=== PATIENT | female | born 1995 | race Caucasian/White ===

== ENCOUNTER 2016-11-07 04:19 | Emergency (ER) | payer SELFPAY ==
[~2016-11-07] VITALS: Ht 157.5 cm; Wt 95.3 kg
[~2016-11-07 04:19] MED LIST: ACET-704 PO; IBUP-1060 PO; PNV1TABL25 PO
[2016-11-07 04:35] VITALS: BP 143/72
[2016-11-07] MEDS ORDERED: LIDO:MAALOX:DONNATAL 1:1:1 15 ML SINGLE DOSE SWSW ONE (05:00)
[2016-11-07] MEDS ORDERED: ONDANSETRON ODT 4 MG TAB.RAPDIS. PO ONE (05:00)
[2016-11-07 05:20] LABS: BILIRUBIN,URINE NEGATIVE (NEG); GLUCOSE,URINE NEGATIVE (NEG); NITRITE,URINE NEGATIVE (NEG); PH,URINE 6.5; PROTEIN,URINE NEGATIVE (NEG-TRACE); UROBILINOGEN,URINE 0.2 mg/dL (0.2 mg/dL)
[2016-11-07 05:27] LABS: BACTERIA,URINE FEW /HPF (0-FEW); RBC,URINE OCC /HPF (0-2); SQUAMOUS EPITHELIAL CELL,UR MOD /LPF; WBC,URINE 20-40 /HPF (0-4)
--- NOTE | 2016-11-07 05:33 | PHYS DOC ---
Past Medical History Past Medical History: No Pertinent History Past Surgical History: No Surgical History Alcohol Use: None Drug Use: None Adult General Chief Complaint Chief Complaint: ABDOMINAL PAIN HPI HPI Patient is a 21 year old female who presents with abdominal pain. She reports symptoms x 4 days with diffuse abdominal pain & loose stools. Denies fevers/ chills, nausea, vomiting, hematochezia/melena, dysuria/hematuria, vaginal bleeding/discharge. No medical history & no abdominal surgeries. Review of Systems Review of Systems Constitutional: Denies fever or chills HENT: Denies nasal congestion or sore throat Respiratory: Denies cough or shortness of breath Cardiovascular: Denies chest pain GI: Reports abdominal pain & diarrhea, denies nausea, vomiting, bloody stools : Denies dysuria or hematuria Musculoskeletal: Denies back pain or joint pain Integument: Denies rash Neurologic: Denies headache Current Medications Current Medications Current Medications Medications (Trade) Dose Ordered Sig/Jeferson Start Time Stop Time Status Last Admin Dose Admin Multi-Ingredient Mouthwash/Gargle (Gi Cocktail Single Dose) 15 ml 1X ONCE 11/07/16 05:00 11/07/16 05:01 DC 11/07/16 04:45 15 ML Ondansetron HCl (Zofran Odt) 4 mg 1X ONCE 11/07/16 05:00 11/07/16 05:01 DC 11/07/16 04:45 4 MG Allergies Allergies Allergies Coded Allergies Type Severity Reaction Last Updated Verified No Known Drug Allergies 12/22/15 No Physical Exam Physical Exam Constitutional: obese, no acute distress, non-toxic appearance. HENT: Normocephalic, atraumatic, bilateral external ears normal, oropharynx moist, nose normal. Eyes: conjunctiva normal, no discharge. Neck: supple, no stridor. Cardiovascular: RRR, no murmurs, no edema. Lungs & Thorax: LCTAB, no wheezing, no respiratory distress. Abdomen: soft, nontender with palpation in all 4 quadrants, nondistended. no rebound/guarding, no masses or pulsatile masses. Skin: Warm, dry, no erythema, no rash. Back: No CVA tenderness. Extremities: No tenderness, no edema. Neurologic: Alert and oriented X 3, no focal deficits noted. Psychologic: Affect normal, judgement normal, mood normal. Current Patient Data Vital Signs Vital Signs Date Time Temp Pulse Resp B/P (MAP) Pulse Ox O2 Delivery O2 Flow Rate FiO2 11/07/16 04:35 98.2 96 18 143/72 (95) 97 Room Air 98.2 Lab Values Laboratory Tests Test 11/07/16 04:00 11/07/16 05:10 POC Urine HCG, Qualitative Hcg negative (Negative) Urine Collection Type Unknown Urine Color Yellow Urine Clarity Clear Urine pH 6.5 Urine Specific [place] 1.015 Urine Protein Negative mg/dL (NEG-TRACE) Urine Glucose (UA) Negative mg/dL (NEG) Urine Ketones (Stick) Negative mg/dL (NEG) Urine Blood Negative (NEG) Urine Nitrite Negative (NEG) Urine Bilirubin Negative (NEG) Urine Urobilinogen Dipstick 0.2 mg/dL (0.2 mg/dL) Urine Leukocyte Esterase Moderate (NEG) Urine RBC Occ /HPF (0-2) Urine WBC 20-40 /HPF (0-4) Urine Squamous Epithelial Cells Mod /LPF Urine Bacteria Few /HPF (0-FEW) Urine Mucus Mod /LPF EKG EKG [] Radiology/Procedures Radiology/Procedures [] Course & Med Decision Making Course & Med Decision Making Pertinent Labs and Imaging studies reviewed. (See chart for details) The patient presents with abdominal pain. She is afebrile, well appearing, no abdominal tenderness on exam. Found to have UTI, will give prescription for cipro & also give pepcid for possible GERD. Recommend rest, PO hydration with clear liquids, follow up as needed with primary care if not improving in 2-3 days. Come back for high fever, severe abdominal pain or flank pain, uncontrolled vomiting, any otherwise worsening condition. Discharged home in stable condition. [] Dragon Disclaimer Dragon Disclaimer This electronic medical record was generated, in whole or in part, using a voice recognition dictation system. Departure Departure Impression: Primary Impression: Urinary tract infection Disposition: 01 HOME, SELF-CARE Condition: STABLE Referrals: NO PCP (PCP) DIPTI FLOWERS MD Patient Instructions: Gastroesophageal Reflux Disease, Adult, [id number], Urinary Tract Infection, [id number] Additional Instructions: You were seen in the emergency department today for abdominal pain. Please take the prescribed antibiotic for urinary tract infection. Try Pepcid for stomach pain. Drink fluids to stay hydrated. Follow up with primary care in 2-3 days if not improving. Come back for high fever, severe pain, uncontrolled vomiting , any otherwise worsening condition. Scripts Famotidine (PEPCID) 20 Mg Tablet 20 MG PO HS, #15 TAB Prov: PACO OLSON MD 11/07/16 Ciprofloxacin Hcl (CIPRO) 250 Mg Tablet 1 TAB PO BID, #6 TAB Prov: PACO OLSON MD 11/07/16 PACO OLSON MD Nov 07, 2016 05:33
[2016-11-07] MEDS ORDERED: CIPR250T30 PO (05:59)
[2016-11-07] MEDS ORDERED: FAMO-63 PO (05:59)
[2016-11-08] MEDS ORDERED: ONDA4TAB10 PO (07:35)
[2016-11-08] MEDS ORDERED: OMEP20TA63 PO (07:35)
== END 2016-11-07 06:00 | disposition home or self-care (01) ==
LOC: ER 04:19
DX: N39.0 Urinary tract infection, site not specified (principal); R19.7 Diarrhea, unspecified
CPT/HCPCS: 81001; 81025; 87086; 99284; Q0162

== ENCOUNTER 2016-11-08 05:16 | Emergency (ER) | payer SELFPAY ==
[~2016-11-08] VITALS: Ht 157.5 cm; Wt 95.3 kg
[~2016-11-08 05:16] MED LIST changes: +CIPR250T30 PO; +FAMO-63 PO
[2016-11-08] MEDS ORDERED: ONDANSETRON ODT 4 MG TAB.RAPDIS. ONE (05:28)
[2016-11-08] MEDS ORDERED: ONDANSETRON ODT 4 MG TAB.RAPDIS. PO ONE (06:00)
[2016-11-08] MEDS ORDERED: fentaNYL PF VIAL 100 MCG/2 ML VIAL IV ONE (06:30)
[2016-11-08] MEDS ORDERED: IV NORMAL SALINE 1000ML BAG 1,000 ML IV ONE (06:30)
[2016-11-08] MEDS ORDERED: FAMOTIDINE 20 MG TABLET. PO ONE (06:30)
[2016-11-08] MEDS ORDERED: LIDO:MAALOX:DONNATAL 1:1:1 15 ML SINGLE DOSE SWSW ONE (06:30)
[2016-11-08] MEDS ORDERED: ONDANSETRON PF 4 MG/2 ML VIAL. IV ONE (06:30)
--- NOTE | 2016-11-08 06:36 | PHYS DOC ---
Past Medical History Past Medical History: No Pertinent History Past Surgical History: No Surgical History Alcohol Use: None Drug Use: None Adult General Chief Complaint Chief Complaint: ABDOMINAL PAIN HPI HPI Patient is a 21 year old female presenting to the emergency department for evaluation of abdominal pain nausea and vomiting. Patient says this started Friday after a hangover and she has not been able to hold anything down all week long. Patient says that she has epigastric burning that goes up into her chest and she has had nonbloody nonbilious emesis. Patient denies any fevers chills dysuria vaginal bleeding vaginal discharge. She is quite anxious but she is in no obvious distress with normal vital signs. Review of Systems Review of Systems Constitutional: Denies fever or chills [] Eyes: Denies change in visual acuity, redness, or eye pain [] HENT: Denies nasal congestion or sore throat [] Respiratory: Denies cough or shortness of breath [] Cardiovascular: No additional information not addressed in HPI [] GI: + abdominal pain, nausea, vomiting. No bloody stools or diarrhea [] : Denies dysuria or hematuria [] Musculoskeletal: Denies back pain or joint pain [] Integument: Denies rash or skin lesions [] Neurologic: Denies headache, focal weakness or sensory changes [] Current Medications Current Medications Current Medications Medications (Trade) Dose Ordered Sig/Jeferson Start Time Stop Time Status Last Admin Dose Admin Famotidine (Pepcid) 20 mg 1X ONCE 11/08/16 06:30 11/08/16 06:31 DC 11/08/16 07:11 20 MG Fentanyl Citrate (Fentanyl 2ml Vial) 75 mcg 1X ONCE 11/08/16 06:30 11/08/16 06:31 DC 11/08/16 07:12 75 MCG Multi-Ingredient Mouthwash/Gargle (Gi Cocktail Single Dose) 15 ml 1X ONCE 11/08/16 06:30 11/08/16 06:31 DC 11/08/16 07:11 15 ML Ondansetron HCl (Zofran Odt) 4 mg 1X ONCE 11/08/16 06:00 11/08/16 06:01 DC 11/08/16 05:42 4 MG Ondansetron HCl (Zofran) 4 mg 1X ONCE 11/08/16 06:30 11/08/16 06:31 DC 11/08/16 07:12 4 MG Sodium Chloride 1,000 ml @ 1,000 mls/hr 1X ONCE 11/08/16 06:30 11/08/16 07:29 DC 11/08/16 07:11 1,000 MLS/HR Allergies Allergies Allergies Coded Allergies Type Severity Reaction Last Updated Verified No Known Drug Allergies 12/22/15 No Physical Exam Physical Exam Constitutional: Well developed, well nourished, no acute distress, non-toxic appearance. [] HENT: Normocephalic, atraumatic, bilateral external ears normal, oropharynx moist, no oral exudates, nose normal. [] Eyes: PERRLA, EOMI, conjunctiva normal, no discharge. [] Neck: Normal range of motion, no tenderness, supple, no stridor. [] Cardiovascular:Heart rate regular rhythm, no murmur [] Lungs & Thorax: Bilateral breath sounds clear to auscultation [] Abdomen: Bowel sounds normal, soft, + epigastric tenderness, no masses, no pulsatile masses. [] Skin: Warm, dry, no erythema, no rash. [] Back: No tenderness, no CVA tenderness. [] Extremities: No tenderness, no cyanosis, no clubbing, ROM intact, no edema. [] Neurologic: Alert and oriented X 3, normal motor function, normal sensory function, no focal deficits noted. [] Current Patient Data Vital Signs Vital Signs Date Time Temp Pulse Resp B/P (MAP) Pulse Ox O2 Delivery O2 Flow Rate FiO2 11/08/16 07:12 18 98 11/08/16 05:21 98.4 79 117/56 (76) Room Air 98.4 Lab Values Laboratory Tests Test 11/08/16 06:09 11/08/16 06:35 11/08/16 07:00 POC Urine HCG, Qualitative Hcg negative (Negative) White Blood Count 9.3 x10^3/uL (4.0-11.0) Red Blood Count 4.50 x10^6/uL (3.50-5.40) Hemoglobin 13.5 g/dL (12.0-15.5) Hematocrit 40.2 % (36.0-47.0) Mean Corpuscular Volume 89 fL (79-100) Mean Corpuscular Hemoglobin 30 pg (25-35) Mean Corpuscular Hemoglobin Concent 34 g/dL (31-37) Red Cell Distribution Width 13.2 % (11.5-14.5) Platelet Count 210 x10^3/uL (140-400) Neutrophils (%) (Auto) 70 % (31-73) Lymphocytes (%) (Auto) 23 % (24-48) L Monocytes (%) (Auto) 6 % (0-9) Eosinophils (%) (Auto) 0 % (0-3) Basophils (%) (Auto) 1 % (0-3) Neutrophils # (Auto) 6.5 x10^3uL (1.8-7.7) Lymphocytes # (Auto) 2.2 x10^3/uL (1.0-4.8) Monocytes # (Auto) 0.6 x10^3/uL (0.0-1.1) Eosinophils # (Auto) 0.0 x10^3/uL (0.0-0.7) Basophils # (Auto) 0.1 x10^3/uL (0.0-0.2) Sodium Level 141 mmol/L (136-145) Potassium Level 3.6 mmol/L (3.5-5.1) Chloride Level 105 mmol/L (98-107) Carbon Dioxide Level 26 mmol/L (21-32) Anion Gap 10 (6-14) Blood Urea Nitrogen 4 mg/dL (7-20) L Creatinine 0.7 mg/dL (0.6-1.0) Estimated GFR (Cockcroft-Gault) 105.6 BUN/Creatinine Ratio 6 (6-20) Glucose Level 117 mg/dL (70-99) H Calcium Level 8.4 mg/dL (8.5-10.1) L Magnesium Level 1.9 mg/dL (1.8-2.4) Total Bilirubin 0.4 mg/dL (0.2-1.0) Aspartate Amino Transferase (AST) 16 U/L (15-37) Alanine Aminotransferase (ALT) 24 U/L (14-59) Alkaline Phosphatase 79 U/L (46-116) Creatine Kinase 144 U/L (26-192) Total Protein 6.8 g/dL (6.4-8.2) Albumin 3.5 g/dL (3.4-5.0) Albumin/Globulin Ratio 1.1 (1.0-1.7) Lipase 118 U/L (73-393) Urine Collection Type Unknown Urine Color Yellow Urine Clarity Clear Urine pH 6.5 Urine Specific [place] 1.025 Urine Protein Negative mg/dL (NEG-TRACE) Urine Glucose (UA) Negative mg/dL (NEG) Urine Ketones (Stick) 40 mg/dL (NEG) Urine Blood Negative (NEG) Urine Nitrite Negative (NEG) Urine Bilirubin Negative (NEG) Urine Urobilinogen Dipstick 0.2 mg/dL (0.2 mg/dL) Urine Leukocyte Esterase Negative (NEG) Urine RBC 0 /HPF (0-2) Urine WBC 0 /HPF (0-4) Urine Squamous Epithelial Cells Few /LPF Urine Bacteria 0 /HPF (0-FEW) Urine Opiates Screen Neg (NEG) Urine Methadone Screen Neg (NEG) Urine Barbiturates Pos (NEG) Urine Phencyclidine Screen Neg (NEG) Urine Amphetamine/Methamphetamine Neg (NEG) Urine Benzodiazepines Screen Neg (NEG) Urine Cocaine Screen Neg (NEG) Urine Cannabinoids Screen Pos (NEG) Urine Ethyl Alcohol Neg (NEG) Laboratory Tests 11/08/16 06:35 Laboratory Tests 11/08/16 06:35 EKG EKG [] Radiology/Procedures Radiology/Procedures [] Course & Med Decision Making Course & Med Decision Making Patient with gastritis-type symptoms we'll treat symptoms check labs and reassess. Patient with non-specific epigastric pain, likely related to gastritis. Patient given GI cocktail, zofran, fentanyl. Now she is feeling much better and can tolerate fluids by mouth with no difficulty. Her repeat abdominal exam is benign and she is feeling better and asking to go home. Given she appears well with normal vital signs benign physical exam and workup she'll be sent home with supportive treatment including Zofran and Prilosec and told to take it easy on her GI tract and follow with the primary care provider and/or PCP next week to ensure improvement come back to the ER sooner with any worsening pain fevers vomiting or other general concerns. Patient verbalized understanding of the above instructions. Dragon Disclaimer Dragon Disclaimer This electronic medical record was generated, in whole or in part, using a voice recognition dictation system. Departure Departure Impression: Primary Impression: Abdominal pain Additional Impression: Nausea & vomiting Disposition: 01 HOME, SELF-CARE Condition: GOOD Referrals: NO PCP (PCP) TRUDI RINCON MD Patient Instructions: Gastritis, Adult Additional Instructions: DRINK PLENTY OF WATER AND GATORADE. ONCE YOU START FEELING BETTER YOU CAN EAT SOFT NON-IRRITATING FOODS SUCH SOUPS, JELLOS, MASHED POTATOES. USE OTC TUMS AND MAALOX FOR YOUR SYMPTOMS. FOLLOW WITH A PCP AND/OR GI DOC IF NOT FEELING BETTER BY NEXT WEEK. THANK YOU! Scripts Omeprazole Magnesium (PRILOSEC OTC) 20 Mg Tablet. 20 MG PO DAILY, #30 TAB Prov: DIPTI CEDENO DO 11/08/16 Ondansetron (ZOFRAN ODT) 4 Mg Tab.rapdis 4 MG PO BID Y for NAUSEA/VOMITING, #14 TAB Prov: DIPTI CEDENO DO 11/08/16 Problem Qualifiers Primary Impression: Abdominal pain Abdominal location: epigastric Qualified Codes: R10.13 - Epigastric pain DIPTI CEDENO DO Nov 08, 2016 06:36
[2016-11-08 07:03] LABS: BASO # 0.1 x10^3/uL (0.0-0.2); BASO % 1 % (0-3); EOS % 0 % (0-3); HEMATOCRIT 40.2 % (36.0-47.0); HEMOGLOBIN 13.5 g/dL (12.0-15.5); LYMPH # 2.2 x10^3/uL (1.0-4.8); LYMPH % 23 % (24-48); MEAN CORPUSCULAR HEMOGLOBIN 30 pg (25-35); MEAN CORPUSCULAR HGB CONC 34 g/dL (31-37); MEAN CORPUSCULAR VOLUME 89 fL (79-100); MONO % 6 % (0-9); NEUT % 70 % (31-73); PLATELET COUNT 210 x10^3/uL (140-400); RED CELL DISTRIBUTION WIDTH 13.2 % (11.5-14.5); WHITE BLOOD COUNT 9.3 x10^3/uL (4.0-11.0)
[2016-11-08 07:13] LABS: BILIRUBIN,URINE NEGATIVE (NEG); GLUCOSE,URINE NEGATIVE (NEG); NITRITE,URINE NEGATIVE (NEG); PH,URINE 6.5; PROTEIN,URINE NEGATIVE (NEG-TRACE); UROBILINOGEN,URINE 0.2 mg/dL (0.2 mg/dL)
[2016-11-08 07:15] LABS: CALCIUM 8.4 mg/dL (8.5-10.1); CREATININE 0.7 mg/dL (0.6-1.0); GFR 105.6; POTASSIUM 3.6 mmol/L (3.5-5.1)
[2016-11-08 07:20] LABS: ALBUMIN 3.5 g/dL (3.4-5.0); ALBUMIN/GLOBULIN RATIO 1.1 (1.0-1.7); MAGNESIUM 1.9 mg/dL (1.8-2.4); TOTAL BILIRUBIN 0.4 mg/dL (0.2-1.0); TOTAL PROTEIN 6.8 g/dL (6.4-8.2)
[2016-11-08 07:24] LABS: BARBITURATES POS (NEG); BENZODIAZEPINES NEG (NEG); CANNABINOIDS POS (NEG); COCAINE NEG (NEG); METHADONE NEG (NEG); OPIATES NEG (NEG); PHENCYCLIDINE NEG (NEG)
[2016-11-08 07:25] LABS: BACTERIA,URINE 0 /HPF (0-FEW); RBC,URINE 0 /HPF (0-2); SQUAMOUS EPITHELIAL CELL,UR FEW /LPF; WBC,URINE 0 /HPF (0-4)
[2016-11-08 07:31] VITALS: BP 120/72
[2016-11-08] MEDS ORDERED: OMEP20TA63 PO (07:35)
[2016-11-08] MEDS ORDERED: ONDA4TAB10 PO (07:35)
== END 2016-11-08 07:57 | disposition home or self-care (01) ==
LOC: ER 05:16
DX: R10.13 Epigastric pain (principal); R11.2 Nausea with vomiting, unspecified
CPT/HCPCS: 36415; 80053; 80305; 80320; 81001; 81025; 82550; 83690; 83735; 85027; 96361; 96374; 96375; 99284; G0481; J2405; J3010; J7030; Q0162

== ENCOUNTER 2016-11-26 19:30 | Emergency (ER) | payer SELFPAY ==
[~2016-11-26] VITALS: Ht 157.5 cm; Wt 95.3 kg
[~2016-11-26 19:30] MED LIST changes: +OMEP20TA63 PO; +ONDA4TAB10 PO
[2016-11-26 20:04] LABS: BILIRUBIN,URINE NEGATIVE (NEG); GLUCOSE,URINE NEGATIVE (NEG); NITRITE,URINE NEGATIVE (NEG); PROTEIN,URINE NEGATIVE (NEG-TRACE); UROBILINOGEN,URINE 0.2 mg/dL (0.2 mg/dL)
[2016-11-26 20:15] LABS: BASO # 0.1 x10^3/uL (0.0-0.2); BASO % 1 % (0-3); EOS % 1 % (0-3); HEMATOCRIT 43.3 % (36.0-47.0); HEMOGLOBIN 14.3 g/dL (12.0-15.5); LYMPH # 4.1 x10^3/uL (1.0-4.8); LYMPH % 30 % (24-48); MEAN CORPUSCULAR HEMOGLOBIN 30 pg (25-35); MEAN CORPUSCULAR HGB CONC 33 g/dL (31-37); MEAN CORPUSCULAR VOLUME 90 fL (79-100); MONO % 6 % (0-9); NEUT % 62 % (31-73); PLATELET COUNT 236 x10^3/uL (140-400); RED BLOOD COUNT 4.79 x10^6/uL (3.50-5.40); RED CELL DISTRIBUTION WIDTH 13.6 % (11.5-14.5); WHITE BLOOD COUNT 13.8 x10^3/uL (4.0-11.0)
[2016-11-26] MEDS ORDERED: IV NORMAL SALINE 1000ML BAG 1,000 ML IV SCH (20:15)
[2016-11-26] MEDS ORDERED: ONDANSETRON PF 4 MG/2 ML VIAL. IV ONE (20:15)
[2016-11-26 20:16] LABS: BACTERIA,URINE FEW /HPF (0-FEW); RBC,URINE 0 /HPF (0-2); SQUAMOUS EPITHELIAL CELL,UR OCC /LPF; WBC,URINE OCC /HPF (0-4)
[2016-11-26 20:24] LABS: BARBITURATES NEG (NEG); BENZODIAZEPINES NEG (NEG); CANNABINOIDS POS (NEG); COCAINE NEG (NEG); METHADONE NEG (NEG); OPIATES NEG (NEG); PHENCYCLIDINE NEG (NEG)
[2016-11-26 20:31] LABS: CALCIUM 8.2 mg/dL (8.5-10.1); CREATININE 0.9 mg/dL (0.6-1.0); POTASSIUM 3.6 mmol/L (3.5-5.1)
[2016-11-26 20:37] LABS: ALBUMIN 3.8 g/dL (3.4-5.0); TOTAL BILIRUBIN 0.2 mg/dL (0.2-1.0); TOTAL PROTEIN 7.5 g/dL (6.4-8.2)
[2016-11-26] MEDS ORDERED: ONDA4TAB7 PO (21:27)
[2016-11-26 21:37] VITALS: BP 107/54
--- NOTE | 2016-11-27 01:42 | ED.ADGEN ---
Past Medical History Past Medical History: No Pertinent History Past Surgical History: No Surgical History Alcohol Use: None Drug Use: None Adult General Chief Complaint Chief Complaint: ABDOMINAL PAIN HPI HPI Patient is a 21 year old woman, with no significant past medical history, who presents to the emergency department with a complaint of "numbness", throughout her abdomen "and sometimes the rest of my body". Patient states that she is concerned that she may have something seriously wrong with her abdomen. She denies any pain, complains of strange sensation in the stomach, no diarrhea, no bloating, no weight changes, is eating and drinking without issue. She states that symptoms first began after she drank alcohol for her 21st birthday, and experienced nausea and vomiting the next day. This was several months ago. Patient states that she is not been drinking any alcohol since that time. Patient states that she has been seen in the ED and diagnosed with a urinary tract infection, and with gastritis since that time. She states that she has been having about one episode of vomiting daily over the past several days, only in the morning. She has been using Zofran without effect. She states she's been having regular bowel illness, last was yesterday. No emesis containing blood or bile, no blood in stool. She denies any possibility of , any discharge or drainage from the vagina, any concerns for STI exposures, any urinary complaints currently, any abdominal pain, any weakness, numbness, tingling, sick contacts or exposures. Patient has family at bedside. She describes the numbness as a paresthesia-like feeling throughout her abdomen occasionally in her extremities, states she is anxious, denies any depression, any suicidal or homicidal ideation, any ingestions or complaints. Review of Systems Review of Systems Constitutional: Denies fever or chills. [] Eyes: Denies change in visual acuity. [] HENT: Denies nasal congestion or sore throat. [] Respiratory: Denies cough or shortness of breath. [] Cardiovascular: Denies chest pain or edema. [] GI: Denies abdominal pain, "abdominal numbness", occasional nausea, one episode of vomiting daily in the morning, over the past several days, no diarrhea. : Denies dysuria. [] Musculoskeletal: Denies back pain or joint pain. [] Integument: Denies rash. [] Neurologic: Denies headache, focal weakness or sensory changes. [] Endocrine: Denies polyuria or polydipsia. [] Lymphatic: Denies swollen glands. [] Psychiatric: Denies depression or anxiety. [] Current Medications Current Medications Current Medications Medications (Trade) Dose Ordered Sig/Jeferson Start Time Stop Time Status Last Admin Dose Admin Ondansetron HCl (Zofran) 4 mg 1X ONCE 11/26/16 20:15 11/26/16 20:16 DC Sodium Chloride 1,000 ml @ 1,000 mls/hr Q1H 11/26/16 20:15 11/26/16 21:14 DC 11/26/16 20:09 1,000 MLS/HR Allergies Allergies Allergies Coded Allergies Type Severity Reaction Last Updated Verified No Known Drug Allergies 12/22/15 No Physical Exam Physical Exam Constitutional: Well developed, well nourished, no acute distress, non-toxic appearance. [] HENT: Normocephalic, atraumatic, bilateral external ears normal, oropharynx moist, no oral exudates, nose normal. [] Eyes: PERRLA, EOMI, conjunctiva normal, no discharge. [] Neck: Normal range of motion, no tenderness, supple, no stridor. [] Cardiovascular:Heart rate regular rhythm, no murmur, S1, S2, rubs or gallops. [] Lungs & Thorax: Bilateral breath sounds clear to auscultation, no wheezing, rhonchi, rales. No chest wall crepitus or tenderness. [] Abdomen: Bowel sounds normal, soft, no tenderness, no rebound, rigidity, no guarding, no masses, no pulsatile masses. [] Skin: Warm, dry, no erythema, no rash. [] Back: No tenderness, no CVA tenderness. [] Extremities: No tenderness, no cyanosis, no clubbing, ROM intact, no edema. Negative Homans sign. [] Neurologic: Alert and oriented X 3, normal motor function, normal sensory function, no focal deficits noted. [] Psychologic: Affect normal, judgement normal, mood normal. [] Current Patient Data Vital Signs Vital Signs Date Time Temp Pulse Resp B/P (MAP) Pulse Ox O2 Delivery O2 Flow Rate FiO2 11/26/16 21:37 75 18 107/54 (71) 97 Room Air 11/26/16 19:37 98.7 98.7 Lab Values Laboratory Tests Test 11/26/16 18:50 11/26/16 19:35 11/26/16 19:40 POC Urine HCG, Qualitative Hcg negative (Negative) Urine Color Yellow Urine Clarity Clear Urine pH 7.0 Urine Specific [place] 1.020 Urine Protein Negative mg/dL (NEG-TRACE) Urine Glucose (UA) Negative mg/dL (NEG) Urine Ketones (Stick) Negative mg/dL (NEG) Urine Blood Negative (NEG) Urine Nitrite Negative (NEG) Urine Bilirubin Negative (NEG) Urine Urobilinogen Dipstick 0.2 mg/dL (0.2 mg/dL) Urine Leukocyte Esterase Negative (NEG) Urine RBC 0 /HPF (0-2) Urine WBC Occ /HPF (0-4) Urine Squamous Epithelial Cells Occ /LPF Urine Bacteria Few /HPF (0-FEW) Urine Mucus Slight /LPF Urine Opiates Screen Neg (NEG) Urine Methadone Screen Neg (NEG) Urine Barbiturates Neg (NEG) Urine Phencyclidine Screen Neg (NEG) Urine Amphetamine/Methamphetamine Neg (NEG) Urine Benzodiazepines Screen Neg (NEG) Urine Cocaine Screen Neg (NEG) Urine Cannabinoids Screen Pos (NEG) Urine Ethyl Alcohol Neg (NEG) White Blood Count 13.8 x10^3/uL (4.0-11.0) H Red Blood Count 4.79 x10^6/uL (3.50-5.40) Hemoglobin 14.3 g/dL (12.0-15.5) Hematocrit 43.3 % (36.0-47.0) Mean Corpuscular Volume 90 fL (79-100) Mean Corpuscular Hemoglobin 30 pg (25-35) Mean Corpuscular Hemoglobin Concent 33 g/dL (31-37) Red Cell Distribution Width 13.6 % (11.5-14.5) Platelet Count 236 x10^3/uL (140-400) Neutrophils (%) (Auto) 62 % (31-73) Lymphocytes (%) (Auto) 30 % (24-48) Monocytes (%) (Auto) 6 % (0-9) Eosinophils (%) (Auto) 1 % (0-3) Basophils (%) (Auto) 1 % (0-3) Neutrophils # (Auto) 8.5 x10^3uL (1.8-7.7) H Lymphocytes # (Auto) 4.1 x10^3/uL (1.0-4.8) Monocytes # (Auto) 0.9 x10^3/uL (0.0-1.1) Eosinophils # (Auto) 0.2 x10^3/uL (0.0-0.7) Basophils # (Auto) 0.1 x10^3/uL (0.0-0.2) Sodium Level 143 mmol/L (136-145) Potassium Level 3.6 mmol/L (3.5-5.1) Chloride Level 106 mmol/L (98-107) Carbon Dioxide Level 27 mmol/L (21-32) Anion Gap 10 (6-14) Blood Urea Nitrogen 7 mg/dL (7-20) Creatinine 0.9 mg/dL (0.6-1.0) Estimated GFR (Cockcroft-Gault) 79.0 BUN/Creatinine Ratio 8 (6-20) Glucose Level 101 mg/dL (70-99) H Calcium Level 8.2 mg/dL (8.5-10.1) L Total Bilirubin 0.2 mg/dL (0.2-1.0) Aspartate Amino Transferase (AST) 19 U/L (15-37) Alanine Aminotransferase (ALT) 29 U/L (14-59) Alkaline Phosphatase 90 U/L (46-116) Total Protein 7.5 g/dL (6.4-8.2) Albumin 3.8 g/dL (3.4-5.0) Albumin/Globulin Ratio 1.0 (1.0-1.7) Lipase 107 U/L (73-393) Laboratory Tests 11/26/16 19:40 Laboratory Tests 11/26/16 19:40 EKG EKG Not indicated. [] Radiology/Procedures Radiology/Procedures Acute abdominal series: 3 view: Normal cardiopulmonary silhouette, no infiltrates, no effusions, no pneumothorax, no soft tissue or bony abnormality is identified. As interpreted by me. [] Course & Med Decision Making Course & Med Decision Making Pertinent Labs and Imaging studies reviewed. (See chart for details) Patient well-appearing, complaining of strange sensations of numbness in her abdomen, asks me "Can you guaranteed me that I don't have cancer and I'm not going to ?" Patient's family at bedside stated the patient lost her grandmother to lung cancer, patient was also concerned she could possibly have cancer she did smoke for a brief period of time, but currently is not smoking cigarettes. Laboratory studies and obstruction series obtained after discussion at bedside, no evidence of concerning findings identified, patient's drug screen is positive for marijuana. Patient is calm and cooperative, with stable vital signs in the ED, she does seem to be very anxious about various health- related issues, which may be tied to recent loss of a family member as stated. Reassurance provided to patient, patient encouraged to continue use of Zofran, hydration, to establish a primary care provider, and follow-up with a GI physician if abdominal symptoms persist. Patient discharged home with family in stable condition with plan as above. Dragon Disclaimer Dragon Disclaimer This electronic medical record was generated, in whole or in part, using a voice recognition dictation system. Departure Impression: Primary Impression: Paresthesias Disposition: 01 HOME, SELF-CARE Condition: IMPROVED Scripts Ondansetron Hcl (ZOFRAN) 4 Mg Tablet 1 TAB PO Q8HRS Y for NAUSEA, #12 TAB Prov: ISAÍAS ZUNIGA DO 11/26/16 ISAÍAS ZUNIGA DO Nov 27, 2016 01:42
--- NOTE | 2016-11-27 08:09 | RAD ---
Acute abdomen series with chest, 11/26/2016: History: Abdominal pain, nausea and vomiting Gas is present in large and small bowel in a nonspecific pattern. No free air seen in the abdomen. There is no evidence of organomegaly. The heart size is normal. The lungs are clear. There is no evidence of pleural fluid. IMPRESSION: No acute abdominal abnormality is detected.
== END 2016-11-26 21:45 | disposition home or self-care (01) ==
LOC: ER 19:30
DX: R20.0 Anesthesia of skin (principal); R11.2 Nausea with vomiting, unspecified
CPT/HCPCS: 36415; 74022; 80053; 80307; 81001; 81025; 83690; 85027; 96360; 99285; J7030; G0479

== ENCOUNTER 2016-11-29 16:41 | Emergency (ER) | payer SELFPAY ==
[~2016-11-29] VITALS: Ht 157.5 cm; Wt 87.5 kg
[~2016-11-29 16:41] MED LIST changes: +ONDA4TAB7 PO
[2016-11-29 16:55] VITALS: BP 136/88
[2016-11-29] MEDS ORDERED: NYST100054 PO (17:23)
--- NOTE | 2016-11-29 17:23 | PHYS DOC ---
Past Medical History Past Medical History: No Pertinent History Past Surgical History: No Surgical History Alcohol Use: None Drug Use: None Adult General Chief Complaint Chief Complaint: OTHER COMPLAINTS [facility] Patient is a 21 year old female who presents complaining of white tongue since yesterday. Patient states she was on antibiotics a couple weeks ago. Patient denies any fever coughing or congestion. Review of Systems Review of Systems Constitutional: Denies fever or chills [] Eyes: Denies change in visual acuity, redness, or eye pain [] HENT: white tongue Respiratory: Denies cough or shortness of breath [] Cardiovascular: No additional information not addressed in HPI [] Musculoskeletal: Denies back pain or joint pain [] Integument: Denies rash or skin lesions [] Neurologic: Denies headache, focal weakness or sensory changes [] Endocrine: Denies polyuria or polydipsia [] Allergies Allergies Allergies Coded Allergies Type Severity Reaction Last Updated Verified No Known Drug Allergies 12/22/15 No Physical Exam Physical Exam Constitutional: Well developed, well nourished, no acute distress, non-toxic appearance. [] HENT: Normocephalic, atraumatic, bilateral external ears normal, oropharynx moist, no oral exudates, nose normal. [] tongue with small amount of whiteness suspicious of thrush. Eyes: PERRLA, EOMI, conjunctiva normal, no discharge. [] Neck: Normal range of motion, no tenderness, supple, no stridor. [] Cardiovascular:Heart rate regular rhythm, no murmur [] Lungs & Thorax: Bilateral breath sounds clear to auscultation [] Skin: Warm, dry, no erythema, no rash. [] Back: No tenderness, no CVA tenderness. [] Extremities: No tenderness, no cyanosis, no clubbing, ROM intact, no edema. [] Neurologic: Alert and oriented X 3, normal motor function, normal sensory function, no focal deficits noted. [] Psychologic: Affect normal, judgement normal, mood normal. [] Current Patient Data Vital Signs Vital Signs Date Time Temp Pulse Resp B/P (MAP) Pulse Ox O2 Delivery O2 Flow Rate FiO2 11/29/16 16:55 98.2 86 16 97 Room Air 98.2 EKG EKG [] Radiology/Procedures Radiology/Procedures [] Course & Med Decision Making Course & Med Decision Making Pertinent Labs and Imaging studies reviewed. (See chart for details) Patient is in the ED with rash, she was on antibiotics a couple weeks ago. Will be discharged with nystatin. Follow-up with PCP from the list provided in a week. Warren Disclaimer Dragon Disclaimer This electronic medical record was generated, in whole or in part, using a voice recognition dictation system. Departure Departure Impression: Primary Impression: Thrush, oral Disposition: HOME, SELF-CARE Condition: STABLE Referrals: NO PCP (PCP) follow up with a doctor from the list provided as soon as you can Patient Instructions: Thrush, Adult Additional Instructions: You were seen for oral thrush. Use the provided medicines as ordered. Please establish care with one of the doctors from the list with provided as soon as possible and follow-up. Scripts Nystatin (NYSTATIN) 100,000 Unit/1 Ml Oral.susp 5 ML PO QID, #200 ML Prov: EV DIANE APRN 11/29/16 EV DIANE APRN Nov 29, 2016 17:23
== END 2016-11-29 17:27 | disposition home or self-care (01) ==
LOC: ER 16:41
DX: B37.0 Candidal stomatitis (principal)
CPT/HCPCS: 99283

== ENCOUNTER 2016-12-29 16:39 | Emergency (ER) | payer SELFPAY ==
[~2016-12-29] VITALS: Ht 157.5 cm; Wt 86.6 kg
[~2016-12-29 16:39] MED LIST changes: +NYST100054 PO
--- NOTE | 2016-12-29 17:11 | PHYS DOC ---
Past Medical History Past Medical History: No Pertinent History Past Surgical History: No Surgical History Alcohol Use: None Drug Use: None Adult General Chief Complaint Chief Complaint: CHEST WALL PAIN HPI HPI Patient is a 21 year old female who presents with pain that radiates up into her esophagus with burning sensation. Been going on for approximately a month. She states she wakes up the middle night with it and she's been taking Tums and sometimes it helps sometimes it doesn't. She denies any nausea vomiting or shortness of breath associated with this. She states everything started happening medially after birthday when she got intoxicated and then got a urinary tract infection and then got thrush on her tongue. She was seen by [facility] and treated for this and then followed up with her primary care physician 2 weeks ago and states everything was completely normal with her blood cell counts. She states she is under a lot of stress and this all started after she had her birthday and got intoxicated. Currently she denies any fevers chills nausea vomiting chest discomfort other abnormalities. She presents with her mom who also confirms that she is under a lot of stress. Review of Systems Review of Systems Constitutional: Denies fever or chills [] Eyes: Denies change in visual acuity, redness, or eye pain [] HENT: Denies nasal congestion or sore throat [] Respiratory: Denies cough or shortness of breath [] Cardiovascular: No additional information not addressed in HPI [] GI: Denies abdominal pain, nausea, vomiting, bloody stools or diarrhea [] : Denies dysuria or hematuria [] Musculoskeletal: Denies back pain or joint pain [] Integument: Denies rash or skin lesions [] Neurologic: Denies headache, focal weakness or sensory changes [] Endocrine: Denies polyuria or polydipsia [] Current Medications Current Medications Current Medications Medications (Trade) Dose Ordered Sig/Jeferson Start Time Stop Time Status Last Admin Dose Admin Multi-Ingredient Mouthwash/Gargle (Gi Cocktail Single Dose) 15 ml 1X ONCE 12/29/16 17:30 12/29/16 17:31 DC 12/29/16 17:30 15 ML Allergies Allergies Allergies Coded Allergies Type Severity Reaction Last Updated Verified No Known Drug Allergies 12/22/15 No Physical Exam Physical Exam Constitutional: Well developed, well nourished, no acute distress, non-toxic appearance. [] HENT: Normocephalic, atraumatic, bilateral external ears normal, oropharynx moist, no oral exudates, nose normal. [] Eyes: PERRLA, EOMI, conjunctiva normal, no discharge. [] Neck: Normal range of motion, no tenderness, supple, no stridor. [] Cardiovascular:Heart rate regular rhythm, no murmur [] Lungs & Thorax: Bilateral breath sounds clear to auscultation [] Abdomen: Bowel sounds normal, soft, no tenderness, no masses, no pulsatile masses. [] Skin: Warm, dry, no erythema, no rash. [] Back: No tenderness, no CVA tenderness. [] Extremities: No tenderness, no cyanosis, no clubbing, ROM intact, no edema. [] Neurologic: Alert and oriented X 3, normal motor function, normal sensory function, no focal deficits noted. [] Psychologic: Affect normal, judgement normal, mood normal. [] Current Patient Data Vital Signs Vital Signs Date Time Temp Pulse Resp B/P (MAP) Pulse Ox O2 Delivery O2 Flow Rate FiO2 12/29/16 16:50 98.4 74 22 144/67 (92) 98 Room Air 98.4 Lab Values Laboratory Tests Test 12/29/16 16:09 POC Urine HCG, Qualitative Hcg negative (Negative) EKG EKG [] Radiology/Procedures Radiology/Procedures [] Impressions: Acid reflux Course & Med Decision Making Course & Med Decision Making Pertinent Labs and Imaging studies reviewed. (See chart for details) Physical exam is benign. Her vitals are all within normal limits. As I have any concerning symptoms such as shortness of breath, weight loss or other abnormalities associated with this. Certainly sounds like this could be acid reflux. We'll have her try Pepcid AC and follow-up with her primary care physician. Return precautions given she is agreeable Plan B discharged in stable condition this time. Dragon Disclaimer Dragon Disclaimer This electronic medical record was generated, in whole or in part, using a voice recognition dictation system. Departure Departure Impression: Primary Impression: Acid reflux Disposition: HOME, SELF-CARE Condition: STABLE Referrals: NO PCP (PCP) Patient Instructions: Gastroesophageal Reflux Disease, Adult Additional Instructions: Your symptoms sound like you have acid reflux and this could be causing your pain in your chest that goes up into her throat as your describing. You can try [id number] Pepcid AC. This can be purchased at your local pharmacy. Please follow instructions on the bottle. You will need to follow-up with her primary care physician's within the next week. He should follow up with [facility]. Return ER if your pain gets worse, you have troubles breathing swallowing, shortness of breath associated with these, weight loss or other concerns. Problem Qualifiers Primary Impression: Acid reflux Esophagitis presence: esophagitis presence not specified Qualified Codes: K21.9 - Gastro-esophageal reflux disease without esophagitis NAGA MARTINES MD Dec 29, 2016 17:11
[2016-12-29] MEDS ORDERED: LIDO:MAALOX:DONNATAL 1:1:1 15 ML SINGLE DOSE SWSW ONE (17:30)
[2016-12-29 18:00] VITALS: BP 132/64
--- NOTE | 2016-12-30 06:08 | EKG ---
[facility] [address] [place] [address] Test Date: 2016-12-29 Test Time: 16:56:40 Pat Name: MAURI STARKS Department: Room: Gender: F Sterilisation Technician: : 1995 Requested By: NAGA MARTINES Order Number: [id number] Reading MD: Johnathan Bakre Measurements Intervals [place] Rate: 74 P: 62 WA: 148 QRS: 65 QRSD: 80 T: 31 QT: 382 QTc: 424 Interpretive Statements SINUS RHYTHM Electronically Signed On 12-30-2016 12:04:20 CDT by Johnathan Baker
== END 2016-12-29 18:01 | disposition home or self-care (01) ==
LOC: ER 16:39
DX: K21.9 Gastro-esophageal reflux disease without esophagitis (principal); F43.9 Reaction to severe stress, unspecified
CPT/HCPCS: 81025; 93005; 99283-25

== ENCOUNTER 2018-04-16 13:59 | Emergency (ER) | payer MEDICAID, OTHER ==
[~2018-04-16] VITALS: Ht 162.6 cm; Wt 86.6 kg
[2018-04-16 15:19] LABS: BILIRUBIN,URINE NEGATIVE (NEG); CLARITY,URINE CLEAR; COLOR,URINE YELLOW; NITRITE,URINE NEGATIVE (NEG); PROTEIN,URINE NEGATIVE (NEG-TRACE); UROBILINOGEN,URINE 0.2 mg/dL (0.2 mg/dL)
[2018-04-16 15:25] LABS: SQUAMOUS EPITHELIAL CELL,UR MOD /LPF
[2018-04-16 15:26] LABS: BACTERIA,URINE 0 /HPF (0-FEW); RBC,URINE 0 /HPF (0-2)
--- NOTE | 2018-04-16 15:29 | PHYS DOC ---
Past Medical History Past Medical History: No Pertinent History Past Surgical History: No Surgical History Alcohol Use: None Drug Use: None Adult General Chief Complaint Chief Complaint: VAGINAL BLEEDING HPI HPI Patient is a 22 year old female who presents to the emergency room with complaints of vaginal itching, and blood on the tissue paper when she wipes the last 2 days. Patient denies any abdominal pain, pelvic pain, low back pain, or hematuria. She states that at times her labia trevizo when she urinates. She admits to scratching at the itching skin. She denies any irregular vaginal odor. She states she was seen at [facility] on April 09 and told that she was 7 weeks . She states at that time they prescribed her some Keflex and she has been taking that. Patient reports concerns of having a yeast infection. She states that [facility] there was no vaginal exam completed. Her last menstrual period was at the end of February she is 2 para 1. She denies any nausea, vomiting, diarrhea, or fever. She denies any increased urinary frequency or foul smell to her urine. Review of Systems Review of Systems Constitutional: Denies fever or chills [] Respiratory: Denies cough or shortness of breath [] Cardiovascular: No additional information not addressed in HPI [] GI: Denies abdominal pain, nausea, vomiting, or diarrhea [] : See history of present illness Musculoskeletal: Denies back pain or joint pain [] Integument: Denies rash or skin lesions [] Neurologic: Denies headache, focal weakness or sensory changes [] Complete systems were reviewed and found to be within normal limits, except as documented in this note. Allergies Allergies Allergies Coded Allergies Type Severity Reaction Last Updated Verified No Known Drug Allergies 12/22/15 No Physical Exam Physical Exam Constitutional: Well developed, well nourished, no acute distress, non-toxic appearance. [] HENT: Normocephalic, atraumatic, bilateral external ears normal, nose normal. [ ] Eyes: conjunctiva normal, no discharge. [] Neck: Normal range of motion Pelvic Exam: Vb Developer present Saba RN Abdomen: Nontender External Genitalia: erythremia of labial folds consistent with kasey Speculum: Normal vaginal mucosa, thick white vaginal discharge, normal cervical discharge Bimanual: No adnexal masses or tenderness, No CMT [] Skin: Warm, dry, no erythema, no rash. [] Extremities: No cyanosis,ROM intact, no edema. [] Neurologic: Alert and oriented X 3, normal motor function, normal sensory function, no focal deficits noted. [] Psychologic: Affect normal, judgement normal, mood normal. [] Current Patient Data Vital Signs Vital Signs Date Time Temp Pulse Resp B/P (MAP) Pulse Ox O2 Delivery O2 Flow Rate FiO2 04/16/18 17:01 79 20 138/80 (99) 98 04/16/18 14:21 97.3 Room Air 97.3 Lab Values Laboratory Tests Test 04/16/18 15:09 Urine Collection Type Unknown Urine Color Yellow Urine Clarity Clear Urine pH 6.0 Urine Specific [place] 1.010 Urine Protein Negative mg/dL (NEG-TRACE) Urine Glucose (UA) Negative mg/dL (NEG) Urine Ketones (Stick) Negative mg/dL (NEG) Urine Blood Negative (NEG) Urine Nitrite Negative (NEG) Urine Bilirubin Negative (NEG) Urine Urobilinogen Dipstick 0.2 mg/dL (0.2 mg/dL) Urine Leukocyte Esterase Small (NEG) Urine RBC 0 /HPF (0-2) Urine WBC 1-4 /HPF (0-4) Urine Squamous Epithelial Cells Mod /LPF Urine Bacteria 0 /HPF (0-FEW) POC Urine HCG, Qualitative Hcg positive (Negative) Microbiology 04/16/18 Wet Prep - Final, Complete EKG EKG [] Radiology/Procedures Radiology/Procedures [] Course & Med Decision Making Course & Med Decision Making Pertinent Labs and Imaging studies reviewed. (See chart for details) dx: Bacterial vaginosis Prescription was written for Flagyl. Urine was negative for signs of infection, but not suspicious for bacterial vaginosis. Patient was instructed to continue taking Keflex as previously prescribed by [facility]. She may use [id number] Monistat for relief of her external vaginal itching. Up with CONTINUOUS IMPROVEMENT DIRECTOR next week as planned. Return to the ER symptoms worsen. Patient verbalized an understanding of home care, medications, follow-up, and return to ED instructions and was in agreement with the plan of care. Dragon Disclaimer Dragon Disclaimer This electronic medical record was generated, in whole or in part, using a voice recognition dictation system. Departure Departure Impression: Primary Impression: Bacterial vaginosis Disposition: HOME, SELF-CARE Condition: STABLE Referrals: UNKNOWN PCP NAME (PCP) Patient Instructions: Bacterial Vaginosis, [id number] Additional Instructions: Fill the prescription and take as directed. Continue taking keflex as previously prescribed. Recommend Monistat over the counter for relief of vaginal itching. Follow up with your OBgyn next week as planned. Return to the ER if symptoms worsen. Scripts Metronidazole (FLAGYL) 500 Mg Tablet 1 TAB PO BID, #14 TAB Prov: MINAL MORRISON APRN 04/16/18 MINAL MORRISON LEGAL WRITING PROFESSOR Apr 16, 2018 15:29
[2018-04-16] MEDS ORDERED: METR500T PO (16:36)
[2018-04-16 17:01] VITALS: BP 138/80
[2018-04-17 13:22] LABS: GC PROBE Negative (Negative)
== END 2018-04-16 17:01 | disposition home or self-care (01) ==
LOC: ER 13:59
DX: O23.591 Infection of other part of genital tract in pregnancy, first trimester (principal); N76.0 Acute vaginitis; B96.89 Other specified bacterial agents as the cause of diseases classified elsewhere; Z3A.01 Less than 8 weeks gestation of pregnancy
CPT/HCPCS: 81001; 81025; 87086; 87491; 87591; 99283; Q0111

== ENCOUNTER → 2018-07-03 | Outpatient (CLI) | payer OTHER ==
[~2018-07-03] MED LIST changes: +METR500T PO
--- NOTE | 2018-07-03 22:23 | RAD ---
EXAM: Obstetrics sonogram. HISTORY: Size and dates discrepancy. TECHNIQUE: Sonographic imaging of a gravid uterus was performed. COMPARISON: None. FINDINGS: There is a single intrauterine foetus in variable presentation with a heart rate of 163 bpm. The fetus is in cephalic presentation at the beginning of the exam and breech presentation the end of the exam. The cervix is closed and measures 5.9 cm in thickness. There is suggestion of placenta previa on the submitted images. The amniotic fluid axes normal at 10.3 cm. There is a four-chamber heart. There is a three-vessel umbilical cord with normal insertion. The stomach, kidneys, bladder, spine, brain, facial profile and extremities are unremarkable. The biparietal diameter is 4.14 cm, corresponding with 18 weeks and 4 days. The head circumference is 15.43 cm, corresponding with 18 weeks and 3 days. The abdominal circumference is 12.99 cm, corresponding with 18 weeks and 4 days. The femoral length is 2.85 cm, corresponding with 18 weeks and 5 days. The estimated gestational age patient combined ultrasound measurements is 4 days and the estimated weight is 248 g. The estimated due date is 11/30/2018. IMPRESSION: 1. Single intrauterine fetus with an estimated gestational age based on ultrasound measurements of 18 weeks and 4 days and heart rate of 163 bpm. 2. Unremarkable anatomy. 3. Suspected placenta previa. Follow-up to assess for resolution. Electronically signed by: Alyssa Moser MD (07/03/2018 10:21 PM) [facility]
== END | disposition home or self-care (01) ==
LOC: US 14:32
PROVIDERS: ATTEND Obstetrics & Gynecology
DX: O09.92 Supervision of high risk pregnancy, unspecified, second trimester (principal); O26.842 Uterine size-date discrepancy, second trimester; Z3A.18 18 weeks gestation of pregnancy
CPT/HCPCS: 76805

== ENCOUNTER → 2018-09-08 | Outpatient (CLI) | payer OTHER ==
--- NOTE | 2018-09-08 13:17 | RAD ---
Obstetrical ultrasound-limited, 09/08/2018: HISTORY: Follow-up placenta previa There is a single intrauterine fetus in a cephalic orientation. The biparietal diameter measures 7.1 cm compatible with a gestational age of 28-29 weeks. This corresponds well with the other measurements and yields a sonographic EDC of 11/28/2018. This correlates well with the EDC of 11/30/2018 established on the previous ultrasound exam of 07/03/2018. Normal activity and heart motion were seen. The heart rate is 141 bpm. A full survey was not performed at this time. The placenta lies anteriorly with no evidence of placenta previa. The cervical length is 4.2 cm. The amniotic fluid index of 10.2 is within normal limits. IMPRESSION: 1. Single viable intrauterine fetus of 28-29 weeks gestational age demonstrating normal interval growth since 07/03/2018. 2. No evidence of placenta previa. Electronically signed by: Rito Sr MD (09/08/2018 1:14 PM) [facility]
== END | disposition home or self-care (01) ==
LOC: US 10:25
PROVIDERS: ATTEND Obstetrics & Gynecology
DX: O44.03 Complete placenta previa NOS or without hemorrhage, third trimester (principal); Z3A.28 28 weeks gestation of pregnancy
CPT/HCPCS: 76815

== ENCOUNTER 2018-10-26 21:47 | Observation (INO) | payer OTHER ==
[2018-10-26] MEDS ORDERED: IV RINGERS,LACTATED 1000ML 1,000 ML IV SCH (21:49)
[2018-10-26] MEDS ORDERED: ACETAMINOPHEN 500 MG TABLET PO PRN (22:00)
[2018-10-26 22:13] LABS: BILIRUBIN,URINE NEGATIVE (NEG); CLARITY,URINE CLEAR; NITRITE,URINE NEGATIVE (NEG); PH,URINE 7.5; PROTEIN,URINE NEGATIVE (NEG-TRACE); UROBILINOGEN,URINE 0.2 mg/dL (0.2 mg/dL)
[2018-10-26 22:18] LABS: COLOR,URINE STRAW
[2018-10-26 22:21] LABS: BACTERIA,URINE 0 /HPF (0-FEW); RBC,URINE 0 /HPF (0-2); SQUAMOUS EPITHELIAL CELL,UR FEW /LPF; WBC,URINE 0 /HPF (0-4)
== END 2018-10-26 22:58 | disposition home or self-care (01) ==
LOC: 3 SO LND 21:47
PROVIDERS: ADMIT Obstetrics & Gynecology; ATTEND Obstetrics & Gynecology
DX: Z34.93 Encounter for supervision of normal pregnancy, unspecified, third trimester (principal); Z3A.34 34 weeks gestation of pregnancy
CPT/HCPCS: 81001; G0379

== ENCOUNTER 2019-06-17 16:14 | Emergency (ER) | payer SELFPAY ==
[~2019-06-17] VITALS: Ht 157.5 cm; Wt 86.3 kg
[~2019-06-17 16:14] MED LIST changes: +HYDR-3164 PO; +NAPR-514 PO
[2019-06-17 16:56] VITALS: BP 151/70
--- NOTE | 2019-06-17 17:22 | PHYS DOC ---
Past Medical History Past Medical History: No Pertinent History Past Surgical History: No Surgical History Smoking Status: Never Smoker Alcohol Use: None Drug Use: None Adult General Chief Complaint Chief Complaint: COUGH HPI HPI Patient is a 23 year old female who presents to the ED today with multiple comp laints. Patient is complaining of a lump on the right armpit that she believes she has had for a long time. She believes she has cancer and would like this lump tested. She states she thinks she is going to right away from this lump. She appears tearful. She states she has history of anxiety and depression and is not on any treatment. Patient denies any family or personal history of cancer. She is also complaining of nausea and vomiting intermittently for 2 weeks. On questioning whether she is or not, she states her cycle is late but this is not unusual and states she does not want a test in the ED because of the cost. She states she wants to be checked for any type of cancer to make sure she doesn't . Denies any suicidal or homicidal ideations. Denies any vaginal bleeding. Review of Systems Review of Systems Constitutional: Denies fever or chills [] Eyes: Denies change in visual acuity, redness, or eye pain [] HENT: Denies nasal congestion or sore throat [] Respiratory: Denies cough or shortness of breath [] Cardiovascular: No additional information not addressed in HPI [] GI: Reports nausea and vomiting. Denies abdominal pain, bloody stools or diarrhea [] : Denies dysuria or hematuria [] Musculoskeletal: Denies back pain or joint pain [] Integument: Reports lump on the right complete Neurologic: Denies headache, focal weakness or sensory changes [] Psych: Reports anxiety and depression All other systems were reviewed and found to be within normal limits, except as documented in this note. Allergies Allergies Allergies Coded Allergies Type Severity Reaction Last Updated Verified No Known Drug Allergies 12/22/15 No Physical Exam Physical Exam Constitutional: Well developed, well nourished, no acute distress, non-toxic appearance. [] HENT: Normocephalic, atraumatic, bilateral external ears normal, oropharynx moist, no oral exudates, nose normal. [] Eyes: PERRLA, EOMI, conjunctiva normal, no discharge. [] Neck: Normal range of motion, no tenderness, supple, no stridor. [] Cardiovascular:Heart rate regular rhythm, no murmur [] Lungs & Thorax: Bilateral breath sounds clear to auscultation [] Abdomen: Bowel sounds normal, soft, no tenderness, no masses, no pulsatile masses. [] Skin: Warm, dry, no erythema, no rash. No palpable lumps noted on bilateral armpits Back: No tenderness, no CVA tenderness. [] Extremities: No tenderness, no cyanosis, no clubbing, ROM intact, no edema. [] Neurologic: Alert and oriented X 3, normal motor function, normal sensory function, no focal deficits noted. [] Psychologic: Flat affect, depressed mood, tearful. Current Patient Data Vital Signs Vital Signs Date Time Temp Pulse Resp B/P (MAP) Pulse Ox O2 Delivery O2 Flow Rate FiO2 06/17/19 16:56 98.9 98 16 151/70 (97) 98 Room Air 98.9 EKG EKG [] Radiology/Procedures Radiology/Procedures [] Course & Med Decision Making Course & Med Decision Making Pertinent Labs and Imaging studies reviewed. (See chart for details) This is a 23-year-old female patient with multiple including a lump on the right arm pit for unknown period of time, anxiety and depression, nausea and vomiting for 2 weeks and refusing a test. I spoke to patient and significant other for a long time. Provided her resources for follow-up including resources for home test, , [facility]. She met [facility] protocol. She left Dragon Disclaimer Dragon Disclaimer This electronic medical record was generated, in whole or in part, using a voice recognition dictation system. Departure Departure Impression: Primary Impression: Lump in armpit Additional Impressions: Nausea & vomiting Anxiety Depression Disposition: 07 AGAINST MEDICAL ADVICE Condition: STABLE Referrals: NO PCP (PCP) Problem Qualifiers Primary Impression: Lump in armpit Laterality: right Qualified Codes: R22.31 - Localized swelling, mass and lump, right upper limb Additional Impressions: Nausea & vomiting Vomiting type: unspecified Vomiting Intractability: non-intractable Qualified Codes: R11.2 - Nausea with vomiting, unspecified Depression Depression Type: unspecified Qualified Codes: F32.9 - Major depressive disorder, single episode, unspecified MUTUNGA,EV FLIGHT RADIO OPERATOR Jun 17, 2019 17:22
== END 2019-06-17 17:20 | disposition home or self-care (01) ==
LOC: ER 16:14
DX: R22.31 Localized swelling, mass and lump, right upper limb (principal); R11.2 Nausea with vomiting, unspecified; F41.9 Anxiety disorder, unspecified; F32.9 Major depressive disorder, single episode, unspecified
CPT/HCPCS: 99283

== ENCOUNTER 2020-02-03 12:34 | Emergency (ER) | payer SELFPAY ==
[~2020-02-03] VITALS: Ht 157.5 cm; Wt 91.8 kg
[2020-02-03 13:05] VITALS: BP 119/57
[2020-02-03] MEDS ORDERED: clonazePAM 0.5 MG TABLET PO STA (14:02)
[2020-02-03] MEDS ORDERED: CLON-77 PO (14:16)
--- NOTE | 2020-02-03 14:17 | PHYS DOC ---
Past Medical History Past Medical History: No Pertinent History Past Surgical History: No Surgical History Smoking Status: Never Smoker Alcohol Use: None Drug Use: None General Adult EDM: Chief Complaint: GENERALIZED BODY ACHES HPI: HPI: Patient is a 24 year old female with a history of anxiety who presents to the ED today complaining of generalized pain to the left entire side that is been going on for days. Patient denies any injury. Denies any chest pain, shortness of breath, denies any extraneous activity that could cause this pain including heavy lifting. 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 She states she is under overwhelming stress right now especially taking care of her kids and home schooling them. Denies any suicidal homicidal ideations. Requesting somebody to talk to. Review of Systems: Review of Systems: Constitutional: Denies fever or chills. [] Eyes: Denies change in visual acuity. [] HENT: Denies nasal congestion or sore throat. [] Respiratory: Denies cough or shortness of breath. [] Cardiovascular: Denies chest pain or edema. [] GI: Denies abdominal pain, nausea, vomiting, bloody stools or diarrhea. [] : Denies dysuria. [] Musculoskeletal: Reports pain to the entire left side Integument: Denies rash. [] Neurologic: Denies headache, focal weakness or sensory changes. [] Psychiatric: reports anxiety Heart Score: Risk Factors: Risk Factors: DM, Current or recent (<one month) smoker, HTN, HLP, family history of CAD, obesity. Risk Scores: Score 0 - 3: 2.5% MACE over next 6 weeks - Discharge Home Score 4 - 6: 20.3% MACE over next 6 weeks - Admit for Clinical Observation Score 7 - 10: 72.7% MACE over next 6 weeks - Early Invasive Strategies Current Medications: Current Medications Medications (Trade) Dose Ordered Sig/Jeferson Start Time Stop Time Status Last Admin Dose Admin Clonazepam (KlonoPIN) 0.5 mg 1X STAT 02/03/20 14:02 02/03/20 14:07 DC Allergies: Allergies: Allergies Coded Allergies Type Severity Reaction Last Updated Verified No Known Drug Allergies 12/22/15 No Physical Exam: PE: Constitutional: Well developed, well nourished, no acute distress, non-toxic appearance. [] HENT: Normocephalic, atraumatic, bilateral external ears normal, oropharynx moist, no oral exudates, nose normal. [] Eyes: PERRLA, EOMI, conjunctiva normal, no discharge. [] Neck: Normal range of motion, no tenderness, supple, no stridor. [] Cardiovascular:Heart rate regular rhythm, no murmur [] Lungs & Thorax: Bilateral breath sounds clear to auscultation [] Abdomen: Bowel sounds normal, soft, no tenderness, no masses, no pulsatile masses. [] Skin: Warm, dry, no erythema, no rash. [] Back: No tenderness, no CVA tenderness. [] Extremities: No tenderness, no cyanosis, no clubbing, ROM intact, no edema. [] Neurologic: Alert and oriented X 3, normal motor function, normal sensory function, no focal deficits noted. [] Psychologic: Flat affect Current Patient Data: Vital Signs: Vital Signs Date Time Temp Pulse Resp B/P (MAP) Pulse Ox O2 Delivery O2 Flow Rate FiO2 02/03/20 13:05 98.1 72 18 119/57 (77) 97 Room Air 98.1 EKG: EK interpreted by Dr. Chua sinus rhythm HR 58 no STEMI[] Radiology/Procedures: Radiology/Procedures: [] Course & Med Decision Making: Course & Med Decision Making Pertinent Labs and Imaging studies reviewed. (See chart for details) This is a 24-year-old female patient presenting to the ED today complaining of pain to her entire left side that is been going on for days. Patient appears overwhelmed and stressed out. Her stressors of family issues. EKG is negative, Jc from the PAT team was available who talked to patient. She was provided resources for follow-up. Warren Disclaimer: Warren Disclaimer: This electronic medical record was generated, in whole or in part, using a voice recognition dictation system. Departure Departure Impression: Primary Impression: Stress at home Additional Impression: Musculoskeletal pain Disposition: 01 HOME, SELF-CARE Condition: STABLE Referrals: NO PCP (PCP) follow up with resources provided by the PAT team Patient Instructions: Stress Additional Instructions: You were evaluated in the emergency room, please follow-up with the resources provided by Jc. Take the prescribed medications as ordered. Scripts Clonazepam (CLONAZEPAM ) 0.5 Mg Tablet 0.5 MG PO TID PRN for ANXIETY / AGITATION, #21 TAB Prov: EV DIANE APRN 02/03/20 EV DIANE APRN Feb 03, 2020 14:17
== END 2020-02-03 14:26 | disposition home or self-care (01) ==
LOC: ER 12:34
DX: F43.9 Reaction to severe stress, unspecified (principal); M79.18 Myalgia, other site; F41.9 Anxiety disorder, unspecified
CPT/HCPCS: 93005; 99283

== ENCOUNTER 2020-12-08 16:51 | Emergency (ER) | payer SELFPAY ==
[~2020-12-08] VITALS: Ht 160 cm; Wt 90.9 kg
[~2020-12-08 16:51] MED LIST changes: +CLON-77 PO
[2020-12-08] MEDS ORDERED: IV NORMAL SALINE 1000ML BAG 1,000 ML IV SCH (17:15)
--- NOTE | 2020-12-08 17:31 | EKG ---
[facility] [address] [place] [address] Test Date: 2020-12-08 Test Time: 17:02:26 Pat Name: MAURI STARKS Department: Room: Gender: F Therapeutic Case Manager: : 1995 Requested By: JU FERRARO Order Number: [id number] Reading MD: Measurements Intervals [place] Rate: 74 P: 56 NE: 144 QRS: 54 QRSD: 78 T: 33 QT: 370 QTc: 411 Interpretive Statements SINUS RHYTHM NORMAL ECG RI6.02 No previous ECG available for comparison
[2020-12-08 18:03] LABS: BASO # 0.1 x10^3/uL (0.0-0.2); BASO % 1 % (0-3); EOS % 0 % (0-3); HEMATOCRIT 41.6 % (36.0-47.0); HEMOGLOBIN 14.1 g/dL (12.0-15.5); LYMPH # 3.1 x10^3/uL (1.0-4.8); LYMPH % 29 % (24-48); MEAN CORPUSCULAR HEMOGLOBIN 30 pg (25-35); MEAN CORPUSCULAR HGB CONC 34 g/dL (31-37); MEAN CORPUSCULAR VOLUME 88 fL (79-100); MONO # 0.5 x10^3/uL (0.0-1.1); MONO % 5 % (0-9); NEUT # 7.1 x10^3/uL (1.8-7.7); NEUT % 65 % (31-73); PLATELET COUNT 261 x10^3/uL (140-400); RED CELL DISTRIBUTION WIDTH 14.2 % (11.5-14.5); WHITE BLOOD COUNT 10.8 x10^3/uL (4.0-11.0)
--- NOTE | 2020-12-08 18:11 | RAD ---
XR CHEST 1V History: Reason: chest pain / Spl. Instructions: / History: Comparison: None. Findings: No consolidation or pleural effusion. Normal heart size. No pneumothorax. Impression: 1. No acute cardiopulmonary process. Electronically signed by: Rogelio Rivas DO (12/08/2020 6:09 PM) [facility]
[2020-12-08 18:23] LABS: CALCIUM 9.4 mg/dL (8.5-10.1); CREATININE 0.7 mg/dL (0.6-1.0); POTASSIUM 4.4 mmol/L (3.5-5.1)
--- NOTE | 2020-12-08 18:28 | EKG ---
[address] [place] [address] Test Date: 2020-12-08 Test Time: 18:12:34 Pat Name: MAURI STARKS Department: Room: Gender: F Frame Bender: : 1995 Requested By: JU FERRARO Order Number: [id number] Reading MD: Measurements Intervals [place] Rate: 63 P: 47 [place]: 122 QRS: 48 QRSD: 80 T: 34 QT: 406 QTc: 419 Interpretive Statements SINUS RHYTHM NORMAL ECG RI6.02 No previous ECG available for comparison
[2020-12-08 18:29] LABS: ALBUMIN 3.8 g/dL (3.4-5.0); ALBUMIN/GLOBULIN RATIO 1.1 (1.0-1.7); MAGNESIUM 1.9 mg/dL (1.8-2.4); TOTAL BILIRUBIN 0.3 mg/dL (0.2-1.0); TOTAL PROTEIN 7.4 g/dL (6.4-8.2)
[2020-12-08] MEDS ORDERED: HYDR25CA PO (18:49)
--- NOTE | 2020-12-08 18:50 | PHYS DOC ---
Past Medical History Past Medical History: No Pertinent History Past Surgical History: No Surgical History Smoking Status: Never Smoker Alcohol Use: None Drug Use: None General Adult EDM: Chief Complaint: CHEST PAIN HPI: HPI: Patient is a 25 year old female who presents with states for the last 4 days she is getting left-sided chest pain that is more of a dull ache. She states it comes and goes. She is been taking Excedrin for the pain but states it does not help much. She states she is under a lot of stress and anxiety as her child is about to start kindergarten and she is very worried about this. She states she also has history of depression. She is not currently on any medications. She states she called [facility] and they stated that they would take her as a walk-in. 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 She states that she does not have much time for self or to take care of herself. She states that she does need to make time for self and go to [facility] to start on some anxiety medication. She denies shortness of breath, fever, cough, abdominal pain, nausea, vomiting, diarrhea, headache, dizziness, focal weakness, numbness or tingling. Currently rates her pain at a 4 out of 10. It does not radiate. Review of Systems: Review of Systems: Constitutional: Denies fever or chills. [] Eyes: Denies change in visual acuity. [] HENT: Denies nasal congestion or sore throat. [] Respiratory: Denies cough or shortness of breath. [] Cardiovascular: + chest pain or denies edema. [] GI: Denies abdominal pain, nausea, vomiting, bloody stools or diarrhea. [] : Denies dysuria. [] Musculoskeletal: Denies back pain or joint pain. [] Integument: Denies rash. [] Neurologic: Denies headache, focal weakness or sensory changes. [] Endocrine: Denies polyuria or polydipsia. [] Lymphatic: Denies swollen glands. [] Psychiatric: Denies depression or anxiety. [] Heart Score: C/O Chest Pain: Yes HEART Score for Chest Pain: HEART Score for Chest Pain Response (Comments) Value History Slighlty/Non-Suspicious 0 ECG Normal 0 Age < 45 0 Risk Factors 1 or 2 Risk Factors 1 Troponin < Normal Limit 0 Total 1 Risk Factors: Risk Factors: DM, Current or recent (<one month) smoker, HTN, HLP, family history of CAD, obesity. Risk Scores: Score 0 - 3: 2.5% MACE over next 6 weeks - Discharge Home Score 4 - 6: 20.3% MACE over next 6 weeks - Admit for Clinical Observation Score 7 - 10: 72.7% MACE over next 6 weeks - Early Invasive Strategies Current Medications: Current Medications Medications (Trade) Dose Ordered Sig/Jeferson Start Time Stop Time Status Last Admin Dose Admin Sodium Chloride 1,000 ml @ 1,000 mls/hr Q1H 12/08/20 17:15 12/08/20 18:14 DC 12/08/20 17:59 1,000 MLS/HR Allergies: Allergies: Allergies Coded Allergies Type Severity Reaction Last Updated Verified No Known Drug Allergies 12/22/15 No Physical Exam: PE: Constitutional: Well developed, well nourished, no acute distress, non-toxic appearance. [] HENT: Normocephalic, atraumatic, bilateral external ears normal, oropharynx moist, no oral exudates, nose normal. [] Eyes: PERRLA, EOMI, conjunctiva normal, no discharge. [] Neck: Normal range of motion, no tenderness, supple, no stridor. [] Cardiovascular:Heart rate regular rhythm, no murmur [] Lungs & Thorax: Bilateral breath sounds clear to auscultation [] Abdomen: Bowel sounds normal, soft, no tenderness, no masses, no pulsatile masses. [] Skin: Warm, dry, no erythema, no rash. [] Back: No tenderness, no CVA tenderness. [] Extremities: No tenderness, no cyanosis, no clubbing, ROM intact, no edema. [] Neurologic: Alert and oriented X 3, normal motor function, normal sensory function, no focal deficits noted. [] Psychologic: Affect normal, judgement normal, mood normal. [] Normal physical exam Current Patient Data: Labs: Laboratory Tests Test 12/08/20 17:58 12/08/20 18:35 White Blood Count 10.8 x10^3/uL (4.0-11.0) Red Blood Count 4.70 x10^6/uL (3.50-5.40) Hemoglobin 14.1 g/dL (12.0-15.5) Hematocrit 41.6 % (36.0-47.0) Mean Corpuscular Volume 88 fL (79-100) Mean Corpuscular Hemoglobin 30 pg (25-35) Mean Corpuscular Hemoglobin Concent 34 g/dL (31-37) Red Cell Distribution Width 14.2 % (11.5-14.5) Platelet Count 261 x10^3/uL (140-400) Neutrophils (%) (Auto) 65 % (31-73) Lymphocytes (%) (Auto) 29 % (24-48) Monocytes (%) (Auto) 5 % (0-9) Eosinophils (%) (Auto) 0 % (0-3) Basophils (%) (Auto) 1 % (0-3) Neutrophils # (Auto) 7.1 x10^3/uL (1.8-7.7) Lymphocytes # (Auto) 3.1 x10^3/uL (1.0-4.8) Monocytes # (Auto) 0.5 x10^3/uL (0.0-1.1) Eosinophils # (Auto) 0.0 x10^3/uL (0.0-0.7) Basophils # (Auto) 0.1 x10^3/uL (0.0-0.2) Sodium Level 137 mmol/L (136-145) Potassium Level 4.4 mmol/L (3.5-5.1) Chloride Level 101 mmol/L (98-107) Carbon Dioxide Level 27 mmol/L (21-32) Anion Gap 9 (6-14) Blood Urea Nitrogen 10 mg/dL (7-20) Creatinine 0.7 mg/dL (0.6-1.0) Estimated GFR (Cockcroft-Gault) 102.0 BUN/Creatinine Ratio 14 (6-20) Glucose Level 97 mg/dL (70-99) Calcium Level 9.4 mg/dL (8.5-10.1) Magnesium Level 1.9 mg/dL (1.8-2.4) Total Bilirubin 0.3 mg/dL (0.2-1.0) Aspartate Amino Transferase (AST) 26 U/L (15-37) Alanine Aminotransferase (ALT) 27 U/L (14-59) Alkaline Phosphatase 86 U/L (46-116) Troponin I Quantitative < 0.017 ng/mL (0.000-0.055) Total Protein 7.4 g/dL (6.4-8.2) Albumin 3.8 g/dL (3.4-5.0) Albumin/Globulin Ratio 1.1 (1.0-1.7) Lipase 83 U/L (73-393) POC Urine HCG, Qualitative Hcg negative (Negative) Laboratory Tests 12/08/20 17:58 Laboratory Tests 12/08/20 17:58 Vital Signs: Vital Signs Date Time Temp Pulse Resp B/P (MAP) Pulse Ox O2 Delivery O2 Flow Rate FiO2 12/08/20 17:02 98.3 68 17 141/78 (77) 98 Room Air 98.3 EKG: EK and read by Dr. Chua is sinus rhythm and no STEMI Radiology/Procedures: Radiology/Procedures: [] Impression: [facility] [address] [place] [address] IMAGING REPORT Signed PATIENT: MAURI STARKS JACCOUNT: [id number] : 1995 LOCATION: ER AGE: 25 SEX: F EXAM STATUS: PRE ER ORD. PHYSICIAN: JU FERRARO APRN REASON: chest pain PROCEDURE: PORTABLE CHEST 1V XR CHEST 1V History: Reason: chest pain / Spl. Instructions: / History: Comparison: None. Findings: No consolidation or pleural effusion. Normal heart size. No pneumothorax. Impression: 1. No acute cardiopulmonary process. Electronically signed by: Rogelio Rivas DO (12/08/2020 6:09 PM) [facility] DICTATED and SIGNED BY: ROGELIO RIVAS DO DATE: 12/08/20 [id number] Course & Med Decision Making: Course & Med Decision Making Pertinent Labs and Imaging studies reviewed. (See chart for details) See HPI. Alert and oriented x4. Ambulatory with a steady gait. Speaks in full clear sentences. No extremity edema. Lungs are clear to auscultation all lobes. Chest x-ray shows no acute findings. EKG is sinus rhythm and there is no STEMI. Chest pain is not reproducible. PERC negative. [] Dragon Disclaimer: Dragon Disclaimer: This electronic medical record was generated, in whole or in part, using a voice recognition dictation system. Departure Departure Impression: Primary Impression: Anxiety Additional Impressions: Non-cardiac chest pain UTI (urinary tract infection) Qualified Codes: N39.0 - Urinary tract infection, site not specified Disposition: HOME / SELF CARE / HOMELESS Condition: STABLE Referrals: NO PCP (PCP) Patient Instructions: Anxiety and Panic Attacks, Urinary Tract Infection Additional Instructions: Follow-up with [facility]. Also follow-up with a primary care provider. Drink plenty of fluids. If you begin having severe shortness of breath or severe chest pain and/or fever need to come back to emergency room. Scripts Cephalexin (CEPHALEXIN) 500 Mg Capsule 1 CAP PO BID, #14 CAP Prov: JU FERRARO APRN 12/08/20 Hydroxyzine Pamoate (VISTARIL) 25 Mg Capsule 1 CAP PO BID for 14 Days, #28 CAP 1 Refill Prov: JU FERRARO APRN 12/08/20 JU FERRARO APRN Dec 08, 2020 18:50
[2020-12-08 18:54] LABS: AMPHETAMINE/METHAMPHETAMINE NEG (NEG); BARBITURATES NEG (NEG); BENZODIAZEPINES NEG (NEG); BILIRUBIN,URINE NEGATIVE (NEG); CANNABINOIDS POS (NEG); CLARITY,URINE CLEAR; COCAINE NEG (NEG); METHADONE NEG (NEG); NITRITE,URINE NEGATIVE (NEG); OPIATES NEG (NEG); PHENCYCLIDINE NEG (NEG); PROTEIN,URINE NEGATIVE (NEG-TRACE); UROBILINOGEN,URINE 0.2 mg/dL (0.2 mg/dL)
[2020-12-08] MEDS ORDERED: KETOROLAC 30 MG/ML VIAL. IVP ONE (19:00)
[2020-12-08 19:08] LABS: BACTERIA,URINE MODERATE /HPF (0-FEW); COLOR,URINE YELLOW
[2020-12-08 19:09] LABS: RBC,URINE 0 /HPF (0-2)
[2020-12-08] MEDS ORDERED: CEPH500C PO (20:53)
[2020-12-08 21:04] VITALS: BP 121/64
== END 2020-12-08 21:14 | disposition home or self-care (01) ==
LOC: ER 16:51
DX: N39.0 Urinary tract infection, site not specified (principal); R07.89 Other chest pain; F41.9 Anxiety disorder, unspecified; M79.10 Myalgia, unspecified site
CPT/HCPCS: 36415; 71045; 80053; 80307; 81001; 81025; 83690; 83735; 83880; 84484; 85025; 87086; 93005; 96360; 96361; 99285; J7030

== ENCOUNTER 2021-09-05 21:31 | Emergency (ER) | payer SELFPAY ==
[~2021-09-05] VITALS: Ht 157.5 cm; Wt 100.6 kg
[~2021-09-05 21:31] MED LIST changes: +CEPH500C PO; +HYDR25CA PO
--- NOTE | 2021-09-05 21:52 | PHYS DOC ---
Past Medical History Past Medical History: No Pertinent History Past Surgical History: No Surgical History Smoking Status: Former Smoker Alcohol Use: None Drug Use: None General Adult EDM: Chief Complaint: ABDOMINAL PAIN HPI: HPI: Patient is a 25 year old female who presented to ER for evaluation of right si de flank pain that radiated into her right lower abdominal area that been going on for 1 week. Patient denies any nausea vomiting, no cough, no fever. Patient denies urinary symptoms. Patient describes the pain as aching in nature, denies any history of gallbladder problem or kidney problem. The pain does not get better or worse with food. Review of Systems: Review of Systems: Constitutional: Denies fever or chills. [] Eyes: Denies change in visual acuity. [] HENT: Denies nasal congestion or sore throat. [] Respiratory: Denies cough or shortness of breath. [] Cardiovascular: Denies chest pain or edema. [] GI: Positive for right abdominal pain : Denies dysuria. [] Musculoskeletal: Denies back pain or joint pain. [] Integument: Denies rash. [] Neurologic: Denies headache, focal weakness or sensory changes. [] Endocrine: Denies polyuria or polydipsia. [] Lymphatic: Denies swollen glands. [] Psychiatric: Denies depression or anxiety. [] Heart Score: C/O Chest Pain: N/A Risk Factors: Risk Factors: DM, Current or recent (<one month) smoker, HTN, HLP, family history of CAD, obesity. Risk Scores: Score 0 - 3: 2.5% MACE over next 6 weeks - Discharge Home Score 4 - 6: 20.3% MACE over next 6 weeks - Admit for Clinical Observation Score 7 - 10: 72.7% MACE over next 6 weeks - Early Invasive Strategies Allergies: Allergies: Allergies Coded Allergies Type Severity Reaction Last Updated Verified No Known Drug Allergies 09/05/21 No Physical Exam: PE: Constitutional: Well developed, well nourished, no acute distress, non-toxic appearance. [] HENT: Normocephalic, atraumatic, bilateral external ears normal, oropharynx moist, no oral exudates, nose normal. [] Eyes: PERRLA, EOMI, conjunctiva normal, no discharge. [] Neck: Normal range of motion, no tenderness, supple, no stridor. [] Cardiovascular:Heart rate regular rhythm, no murmur [] Lungs & Thorax: Bilateral breath sounds clear to auscultation [] Abdomen: Bowel sounds normal, soft, There is RUQ tenderness to palpation, no masses, no pulsatile masses. [] Skin: Warm, dry, no erythema, no rash. [] Back: No tenderness, no CVA tenderness. [] Extremities: No tenderness, no cyanosis, no clubbing, ROM intact, no edema. [] Neurologic: Alert and oriented X 3, normal motor function, normal sensory function, no focal deficits noted. [] Psychologic: Affect normal, judgement normal, mood normal. [] Current Patient Data: Labs: Laboratory Tests Test 09/05/21 21:45 09/05/21 22:09 Urine Collection Type Unknown Urine Color (Auto) Colorless Urine Turbidity Clear Urine pH (Auto) 7.0 Urine Specific [place] 1.006 Urine Protein (Auto) Negative mg/dL Urine Glucose (Auto)(UA) Negative mg/dL Urine Ketones (Auto) Negative mg/dL Urine Blood (Auto) Negative Urine Nitrite Negative Urine Bilirubin (Auto) Negative Urine Urobilinogen (Auto) Normal mg/dL Urine Leukocyte Esterase (Auto) Small Urine RBC 0 /HPF Urine WBC 1-4 /HPF Urine Squamous Epithelial Cells Mod /LPF Urine Bacteria Moderate /HPF Urine Test Negative White Blood Count 9.9 x10^3/uL Red Blood Count 4.17 x10^6/uL Hemoglobin 12.4 g/dL Hematocrit 37.3 % Mean Corpuscular Volume 89 fL Mean Corpuscular Hemoglobin 30 pg Mean Corpuscular Hemoglobin Concent 33 g/dL Red Cell Distribution Width 14.1 % Platelet Count 211 x10^3/uL Neutrophils (%) (Auto) 58 % Lymphocytes (%) (Auto) 32 % Monocytes (%) (Auto) 8 % Eosinophils (%) (Auto) 1 % Basophils (%) (Auto) 1 % Neutrophils # (Auto) 5.7 x10^3/uL Lymphocytes # (Auto) 3.2 x10^3/uL Monocytes # (Auto) 0.8 x10^3/uL Eosinophils # (Auto) 0.1 x10^3/uL Basophils # (Auto) 0.1 x10^3/uL Sodium Level 135 mmol/L Potassium Level 3.6 mmol/L Chloride Level 103 mmol/L Carbon Dioxide Level 23 mmol/L Anion Gap 9 Blood Urea Nitrogen 10 mg/dL Creatinine 0.8 mg/dL Estimated GFR (Cockcroft-Gault) 87.4 BUN/Creatinine Ratio 13 Glucose Level 95 mg/dL Calcium Level 8.3 mg/dL Magnesium Level 1.8 mg/dL Total Bilirubin 0.2 mg/dL Aspartate Amino Transf (AST/SGOT) 29 U/L Alanine Aminotransferase (ALT/SGPT) 40 U/L Alkaline Phosphatase 69 U/L Total Protein 6.6 g/dL Albumin 3.2 g/dL Albumin/Globulin Ratio 0.9 Lipase 79 U/L Current Medications Medications (Trade) Dose Ordered Sig/Jeferson Route PRN Reason Start Time Stop Time Status Last Admin Dose Admin Iohexol (Omnipaque 300 Mg/ml) 75 ml 1X ONCE IV 09/05/21 23:00 09/05/21 23:01 DC 09/05/21 22:58 Info (CONTRAST GIVEN -- Rx MONITORING) 1 each PRN DAILY PRN MC SEE COMMENTS 09/05/21 22:45 09/07/21 22:44 Ceftriaxone Sodium (Rocephin) 1 gm 1X ONCE IVP 09/05/21 23:45 09/05/21 23:46 Ketorolac Tromethamine (Toradol 30mg Vial) 30 mg 1X ONCE IVP 09/05/21 23:45 09/05/21 23:46 EKG: EKG: [] Radiology/Procedures: Radiology/Procedures: [][facility] [address] [place], [place] [id number] IMAGING REPORT Signed PATIENT: MAURI STARKSCOUNT: [id number] : 1995 LOCATION: ER AGE: 25 SEX: F EXAM STATUS: PRE ER ORD. PHYSICIAN: KAMALA BARNES DO REASON: right side abdominal pain PROCEDURE: CT ABD PELV W/ IV CONTRST ONLY INDICATION: Reason: right side abdominal pain / Spl. Instructions: [id number] [phone] / History: COMPARISON: None. TECHNIQUE: Axial CT images were obtained through the abdomen and pelvis with intravenous contrast. One or more of the following individualized dose reduction techniques were utilized for this examination: 1. Automated exposure control; 2. Adjustment of the mA and/or kV according to patient size; 3. Use of iterative reconstruction technique. FINDINGS: Vascular: No abdominal aortic aneurysm. Hepatobiliary: No intrahepatic biliary duct dilation. Pancreas: No peripancreatic edema. Spleen: Spleen unremarkable. Renal/Bladder: Atrophic left kidney. Urinary bladder is partially distended. Gastrointestinal: Small free fluid. A portion of the appendix is seen and does not appear grossly inflamed in the visualized portion. There is some degenerative changes of the spine including disc protrusion at L4- 5. IMPRESSION: * No evidence of bowel obstruction, appendicitis or hydronephrosis. Electronically signed by: Luis Miguel Souza MD (09/05/2021 11:13 PM) [id number] DICTATED and SIGNED BY: LUIS MIGUEL SOUZA MD DATE: 09/05/212306 Course & Med Decision Making: Course & Med Decision Making Pertinent Labs and Imaging studies reviewed. (See chart for details) [] Dragon Disclaimer: Dragon Disclaimer: This electronic medical record was generated, in whole or in part, using a voice recognition dictation system. Departure Departure Impression: Primary Impression: Flank pain Additional Impression: UTI (urinary tract infection) Disposition: HOME / SELF CARE / HOMELESS Condition: STABLE Referrals: NO PCP (PCP) Follow up with your doctor as needed Patient Instructions: Flank Pain, Urinary Tract Infection Additional Instructions: Thank you for visiting our Emergency Department. We appreciate you trusting us with your care. If any additional problems come up don't hesitate to return to visit us. Please follow up with your primary care provider so they can plan additional care if needed and know about the problem that you had. If symptoms worsen come back to the Emergency Department. Any concerning symptoms that start such as chest pain, shortness of air, weakness or numbness on one side of the body, running high fevers or any other concerning symptoms return to the ER. Scripts Cephalexin (CEPHALEXIN) 500 Mg Tablet 1 TAB PO QID for 7 Days, #28 TAB Prov: KAMALA BARNES DO 09/05/21 KAMALA BARNES DO September 05, 2021 21:52
[2021-09-05 22:20] LABS: BASO # 0.1 x10^3/uL (0.0-0.2); BASO % 1 % (0-3); EOS # 0.1 x10^3/uL (0.0-0.7); EOS % 1 % (0-3); HEMATOCRIT 37.3 % (36.0-47.0); HEMOGLOBIN 12.4 g/dL (12.0-15.5); LYMPH # 3.2 x10^3/uL (1.0-4.8); LYMPH % 32 % (24-48); MEAN CORPUSCULAR HEMOGLOBIN 30 pg (25-35); MEAN CORPUSCULAR HGB CONC 33 g/dL (31-37); MEAN CORPUSCULAR VOLUME 89 fL (79-100); MONO # 0.8 x10^3/uL (0.0-1.1); MONO % 8 % (0-9); NEUT # 5.7 x10^3/uL (1.8-7.7); NEUT % 58 % (31-73); PLATELET COUNT 211 x10^3/uL (140-400); RED BLOOD COUNT 4.17 x10^6/uL (3.50-5.40); RED CELL DISTRIBUTION WIDTH 14.1 % (11.5-14.5); WHITE BLOOD COUNT 9.9 x10^3/uL (4.0-11.0)
[2021-09-05 22:30] LABS: CALCIUM 8.3 mg/dL (8.5-10.1); CREATININE 0.8 mg/dL (0.6-1.0); GFR 87.4; POTASSIUM 3.6 mmol/L (3.5-5.1)
[2021-09-05 22:33] LABS: U PREG PATIENT NEGATIVE (NEG)
[2021-09-05 22:34] LABS: BACTERIA,URINE MODERATE /HPF (0-FEW); RBC,URINE 0 /HPF (0-2)
[2021-09-05 22:36] LABS: ALBUMIN 3.2 g/dL (3.4-5.0); ALBUMIN/GLOBULIN RATIO 0.9 (1.0-1.7); MAGNESIUM 1.8 mg/dL (1.8-2.4); TOTAL BILIRUBIN 0.2 mg/dL (0.2-1.0); TOTAL PROTEIN 6.6 g/dL (6.4-8.2)
[2021-09-05] MEDS ORDERED: CONTRAST GIVEN. MC PRN (22:45)
[2021-09-05] MEDS ORDERED: IOHEXOL 300 MG/ML 100ML VIAL. IV ONE (23:00)
--- NOTE | 2021-09-05 23:15 | RAD ---
INDICATION: Reason: right side abdominal pain / Spl. Instructions: [id number] [phone] / Hist ory: COMPARISON: None. TECHNIQUE: Axial CT images were obtained through the abdomen and pelvis with intravenous contrast. One or more of the following individualized dose reduction techniques were utilized for this examinat ion: 1. Automated exposure control; 2. Adjustment of the mA and/or kV according to patient size; 3 . Use of iterative reconstruction technique. FINDINGS: Vascular: No abdominal aortic aneurysm. Hepatobiliary: No intrahepatic biliary duct dilation. Pancreas: No peripancreatic edema. Spleen: Spleen unremarkable. Renal/Bladder: Atrophic left kidney. Urinary bladder is partially distended. Gastrointestinal: Small free fluid. A portion of the appendix is seen and does not appear grossly inf lamed in the visualized portion. There is some degenerative changes of the spine including disc protrusion at L4-5. IMPRESSION: * No evidence of bowel obstruction, appendicitis or hydronephrosis. Electronically signed by: Sebastian Souza MD (09/05/2021 11:13 PM) [id number]
[2021-09-05 23:30] VITALS: BP 114/50
[2021-09-05] MEDS ORDERED: CEPH500T PO (23:41)
[2021-09-05] MEDS ORDERED: cefTRIAXone IV Push 1 GM VIAL. IVP ONE (23:45)
[2021-09-05] MEDS ORDERED: KETOROLAC 30 MG/ML VIAL. IVP ONE (23:45)
== END 2021-09-05 23:55 | disposition home or self-care (01) ==
LOC: ER 21:31
DX: N39.0 Urinary tract infection, site not specified (principal); Z87.891 Personal history of nicotine dependence
CPT/HCPCS: 36415; 74177; 80053; 81001; 81025; 83690; 83735; 85025; 87086; 96374; 96375; 99285; J0696; J1885; Q9967